=== PATIENT | female | born 1975 | race American Indian/Alaskan Native ===

== ENCOUNTER 2018-06-06 06:59 | Emergency (ER) | payer MEDICAID ==
[2018-06-06 07:08] VITALS: BMI 45.5
[2018-06-06 07:15] VITALS: BP 104/70; PULSE 82; RESP 20; TEMP 98; O2SAT 100
[2018-06-06] MEDS ORDERED: Sodium Chloride 0.9% 1,000 ML IV ONE (07:45)
--- NOTE | 2018-06-06 07:45 | C.PDOC ---
History Of Present Illness WORSENING RUQ ABD PAIN, INTERMIT R LEG SWELL SINCE 05/26. PS RUQ OCC RADIATION R LOWER/R FLANK AREA. INTERMIT, WORSENING LAST EPISODE [employer]IVE. OCC INTERMIT R CALF SWELL, NOW RESOLVED. PS TI @ [facility] [place] FOR SAME, "THEY TRIED TO DO A TEST W A DYE BUT THEY COULDN'T GET THE IV". PS "THEY DID A TEST ON MY LEG AND THEY SAID THERE WAS NO CLOT". NO FEVER, NVD. PSH FIBROID. LMP 05/25. DENIES CP, SOB/ESCAMILLA EXAM MOD DIST NONTOXIC HEENT ANICTERIC, MMM ABD OBESE; +RUQ TEND MOD SOFT NO R/G EXT NO CALF SWELL, TEND, PALP CORD; ATRAUM; AROM WO DIF SKIN INTACT NO RASH NEURO NO FOCAL DEF REMAINDER NEG MDM RO ACUTE ABD; RO DVT. NPO SINCE 06/05 @ 1600 Time Seen by Provider: 06/06/18 07:24 Chief Complaint (Nursing): Abdominal Pain History Per: Patient History/Exam Limitations: no limitations Onset/Duration Of Symptoms: Days Current Symptoms Are (Timing): Still Present Severity: Moderate Location Of Pain/Discomfort: RUQ Associated Symptoms: denies: Chills, Nausea, Vomiting, Diarrhea, Chest Pain Past Medical History Reviewed: Historical Data, Nursing Documentation, Vital Signs Vital Signs: Last Vital Signs Temp 98 F 06/06/18 07:09 Pulse 82 06/06/18 07:09 Resp 20 06/06/18 07:09 BP 104/70 06/06/18 07:09 Pulse Ox 100 06/06/18 10:45 - Medical History PMH: HTN, Hypercholesterolemia Other Surgeries: Hx of surgeries Family History: States: No Known Family Hx - Social History Hx Alcohol Use: No Hx Substance Use: No - Immunization History Hx Tetanus Toxoid Vaccination: No Hx Influenza Vaccination: No Hx Pneumococcal Vaccination: No Review Of Systems Except As Marked, All Systems Reviewed And Found Negative. Constitutional: Negative for: Fever, Chills Cardiovascular: Negative for: Chest Pain Gastrointestinal: Positive for: Abdominal Pain. Negative for: Nausea, Vomiting , Diarrhea Physical Exam - Physical Exam Appears: Non-toxic, Other (moderate distress) Skin: Normal Color, Warm, Dry, No Rash Head: Atraumatic, Normacephalic Eye(s): bilateral: Normal Inspection (anicteric), Other Oral Mucosa: Moist Cardiovascular: Rhythm Regular Respiratory: Normal Breath Sounds, No Rales, No Rhonchi, No Wheezing Gastrointestinal/Abdominal: Soft, Tenderness (moderate RUQ tenderness), No Guarding, No Rebound Extremity: Normal ROM (AROM W/O Difficulty), No Calf Tenderness, No Swelling ( calf swelling), Other (no palpable cord) Extremity: Bilateral: Atraumatic Neurological/Psych: Other (no focal deficits) ED Course And Treatment - Laboratory Results Result Diagrams: 06/06/18 08:21 06/06/18 08:21 Urine POC: Negative O2 Sat by Pulse Oximetry: 100 (RA) Pulse Ox Interpretation: Normal - CT Scan/US R VENOUS DUPLEX Other Rad Studies (CT/US): Radiology Report Reviewed (NEG) Progress - Re-Evaluation Re-evaluation Note: 06/06/18 10:45 APPEARS COMFORTABLE IMPROVED COMPARED TO PRIOR. PENDING CT REPORT 06/06/18 11:32 LABS, US, DOPPLER, CT WNL. 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 NPO SINCE 06/05 @ 1600 Plan: --Morphine IV --Zofran IV -- IV Fluids --Labs --UA -- US- Abd. --CT- Abd & Pelv -- Venuos Duplex Scan Disposition Counseled Patient/Family Regarding: Studies Performed, Diagnosis, Need For Followup, Rx Given - Disposition Referrals: [facility] [Outside] [facility] [Outside] YOUR,PMD AND/OR OBGYN [Other] Disposition: HOME/ ROUTINE Disposition Time: 11:32 Condition: IMPROVED Prescriptions: Acetaminophen with Codeine [Tylenol with Codeine No. 3 300 mg-30 mg] 1 tab PO Q6 PRN #12 tab PRN Reason: Pain, Moderate (4-7) Ibuprofen [Motrin] 600 mg PO Q6 #30 tab Instructions: Acute Abdomen (Belly Pain), Adult (DC) Forms: [facility] (Niuean), Work Excuse - Clinical Impression Clinical Impression: Abdominal pain, Leg pain - Scribe Statement The provider has reviewed the documentation as recorded by the Adonis Jacob Provider Attestation: All medical record entries made by the Gaibscott were at my direction and personally dictated by me. I have reviewed the chart and agree that the record accurately reflects my personal performance of the history, physical exam, medical decision making, and the department course for this patient. I have also personally directed, reviewed, and agree with the discharge instructions and disposition.
[2018-06-06] MEDS ORDERED: Morphine 4 MG/ML VIAL ONE (08:03)
[2018-06-06] MEDS ORDERED: Sodium Chloride 0.9% 1,000 ML ONE (08:04)
[2018-06-06 08:25] LABS: SQUAMOUS EPITHIAL 2 /hpf (0-5); URINE BILIRUBIN NEGATIVE (NEGATIVE); URINE BLOOD NEGATIVE (NEGATIVE); URINE CLARITY Clear (Clear); URINE COLOR Yellow (YELLOW); URINE GLUCOSE (UA) NORMAL (Normal); URINE LEUKOCYTE ESTERASE NEG Leu/uL (Negative); URINE PROTEIN NEGATIVE (NEGATIVE); URINE UROBILINOGEN NORMAL mg/dL (0.2-1.0)
[2018-06-06 08:27] LABS: BASO # 0.1 K/uL (0.0-0.2); EOS # 0.1 K/uL (0.0-0.7); EOS % 1.6 % (0.0-4.0); HEMOGLOBIN 12.8 g/dL (11.0-16.0); LYMPH # 2.1 K/uL (1.0-4.3); LYMPH % 28.9 % (20.0-40.0); MEAN CELL VOLUME 88.1 fL (81.0-99.0); MEAN CORPUSCULAR HEMOGLOBIN 29.4 pg (27.0-31.0); MEAN CORPUSCULAR HGB CONC 33.4 g/dL (33.0-37.0); MEAN PLATELET VOLUME 7.6 fL (7.2-11.7); MONO # 0.4 K/uL (0.0-0.8); MONO % 5.7 % (0.0-10.0); NEUT # 4.5 K/uL (1.8-7.0); NEUT % 62.8 % (50.0-75.0); NRBC % 0.1 % (0.0-2.0); RBC 4.34 Mil/uL (3.80-5.20); RED CELL DISTRIBUTION WIDTH 14.1 % (11.5-14.5); WHITE BLOOD COUNT 7.2 K/uL (4.8-10.8)
[2018-06-06 08:40] LABS: CALCIUM 9.3 mg/dl (8.6-10.4); GFR AFRICAN-AMERICAN > 60; GFR NON-AFRICAN AMERICAN > 60; LIPASE 31 U/L (23-300)
[2018-06-06 08:44] LABS: ALB/GLOB RATIO 1.2 (1.0-2.1); ALBUMIN 4.3 g/dL (3.5-5.0); ALT/SGPT 19 U/L (9-52); AST/SGOT 36 U/L (14-36); BLOOD UREA NITROGEN 12 mg/dL (7-17)
[2018-06-06] MEDS ORDERED: Iodixanol 320 MG/ML 100 ML BOTTLE IV ONE (09:27)
--- NOTE | 2018-06-06 09:37 | VASCLAB ---
PROCEDURE: Right Lower Extremity Venous Duplex Exam. HISTORY: SWELLING RO DVT PRIORS: None. TECHNIQUE: Right common femoral, femoral, popliteal and posterior tibial, peroneal and great saphenous veins were evaluated. Flow was assessed with color Doppler, compressibility, assessment of phasic flow and augmentation response. Report prepared by DEMETRA Leung, RVT FINDINGS: RIGHT: 1. Common Femoral Vein: 1.1. Compressibility - Fully compressible: Thrombus - None: Flow - Phasic: Augmentation -Normal: Reflux - None. 2. Femoral Vein: 2.1. Compressibility - Fully compressible: Thrombus - None: Flow - Phasic: Augmentation -Normal: Reflux - None. 3. Popliteal Vein: 3.1. Compressibility - Fully compressible: Thrombus - None: Flow - Phasic: Augmentation -Normal: Reflux - None. 4. Posterior Tibial Vein: 4.1. Compressibility - Fully compressible: Thrombus - None: Flow - Phasic: Augmentation -Normal: Reflux - None. 5. Peroneal Vein: 5.1. Compressibility - Fully compressible: Thrombus - None: Flow - Phasic: Augmentation -Normal: Reflux - None. 6. Great Saphenous Vein: 6.1. Compressibility - Fully compressible: Thrombus -None: Flow - Phasic: Augmentation - Normal: Reflux - None. OTHER FINDINGS: IMPRESSION: No evidence of deep or superficial vein thrombosis of the right lower extremity with excellent venous flow. Normal valve function noted of the right side. Normal venous flow noted in the left common femoral vein.
--- NOTE | 2018-06-06 09:51 | US ---
Right upper quadrant abdominal ultrasound History: Abdominal pain. Comparison: None available. Technique: Real-time sonography was performed through the right upper quadrant of the abdomen. Findings: Liver: 14.0 centimeters in length. Normal echogenicity of the hepatic parenchymal cortex. Gallbladder: No calculi or sludge. Normal wall thickness of 2 millimeters. Negative sonographic Hilliard's sign. Common bile duct measures 3.6 millimeters, within normal limits. Pancreas not well visualized. Visualized aorta and IVC are preserved. Right kidney: 10.1 x 4.9 x 5.6 centimeters. No calculi or hydronephrosis. Impression: Unremarkable sonographic evaluation of the right upper quadrant of the abdomen.
--- NOTE | 2018-06-06 11:13 | CT ---
PROCEDURE: CT Abdomen and Pelvis with contrast HISTORY: abd pain COMPARISON: None. TECHNIQUE: Contrast dose: 100 mL Visipaque 320 Radiation dose: Total exam DLP = 1187.2 mGy-cm. This CT exam was performed using one or more of the following dose reduction techniques: Automated exposure control, adjustment of the mA and/or kV according to patient size, and/or use of iterative reconstruction technique. FINDINGS: LOWER THORAX: Unremarkable. LIVER: Mild hepatic steatosis. No gross lesion or ductal dilatation. GALLBLADDER AND BILE DUCTS: Unremarkable. PANCREAS: Unremarkable. No gross lesion or ductal dilatation. SPLEEN: Unremarkable. ADRENALS: Unremarkable. No mass. KIDNEYS AND URETERS: Unremarkable. No hydronephrosis. No solid mass. VASCULATURE: Unremarkable. No aortic aneurysm. BOWEL: Unremarkable. No obstruction. No gross mural thickening. APPENDIX: Normal appendix. PERITONEUM: Small fat containing umbilical hernia. No free fluid. No free air. LYMPH NODES: Unremarkable. No enlarged lymph nodes. BLADDER: Unremarkable. REPRODUCTIVE: 8 mm hypervascular focus adjacent to the endometrium on the right. Left adnexal cyst measuring 3.5 x 2.4 cm. BONES: No acute fracture. OTHER FINDINGS: None. IMPRESSION: No acute abdominal pelvic pathology. Nonspecific 8 mm hypervascular focus adjacent to the endometrium on the right which may represent a polyp or submucosal fibroid. Pelvic ultrasound or sonohysterography can be obtained further evaluation as clinically warranted. Left adnexal cyst measuring up to 3.5 cm.
== END 2018-06-06 12:00 | disposition home or self-care (01) ==
LOC: C.ER 06:59
DX: R10.9 Unspecified abdominal pain (principal); M79.604 Pain in right leg; I10 Essential (primary) hypertension; E78.00 Pure hypercholesterolemia, unspecified
CPT/HCPCS: 74177; 76705; 80053; 81001; 83690; 85025; 93971; 96374; 96375; 99284; J2270; J2405; J7030; Q9967